=== PATIENT | male | born 1945 ===

== ENCOUNTER 2020-03-07 11:18 | Inpatient (IN) ==
[2020-03-07] MEDS ORDERED: 0.9 % Sodium Chloride 1,000 ML IVC ONE (11:38)
[2020-03-07 11:54] LABS: Basophils % 0.2 %; Hematocrit 37.4 % (37.5-50.1); Hemoglobin 12.1 g/dL (12.9-16.9); Immature Granulocytes % 0.5 % (0-4); Lymphocytes # 0.5 K/mcL (0.6-4.6); Lymphocytes % 12.3 %; Mean Corpuscular HGB Conc 32.4 g/dL (31.6-35.5); Mean Corpuscular Hemoglobin 30.9 pg (28.0-33.3); Mean Corpuscular Volume 95.4 fL (83.0-100.0); Mean Platelet Volume 10.3 fL (9.4-12.4); Monocytes # 0.4 K/mcL (0.0-1.3); Monocytes % 8.4 %; Neutrophils # 3.3 K/mcL (1.6-8.9); Platelet Count 152 K/mcL (140-400); Red Blood Count 3.92 M/mcL (4.19-5.50); Segmented Neutrophils % 78.6 %; White Blood Count 4.2 K/mcL (4.3-11.1)
[2020-03-07 12:05] LABS: INR 1.2; Prothrombin Time 13.8 Seconds (9.4-12.1)
[2020-03-07 12:07] LABS: Activated Partial Thrombo Time 29.4 Seconds (26.0-36.0)
[2020-03-07 12:17] LABS: Alanine Aminotransferase 22 Units/L (7-52); Albumin 4.5 g/dL (3.5-5.7); Albumin/Globulin Ratio 1.5 (1.1-2.2); Alkaline Phosphatase 59 Units/L (34-104); Aspartate Amino Transferase 26 Units/L (13-39); BUN/Creatinine Ratio 17 (6-26); Bilirubin,Direct 0.1 mg/dL (0.0-0.2); Bilirubin,Indirect 0.5 mg/dL (0.0-1.0); Bilirubin,Total 0.6 mg/dL (0.3-1.0); Blood Urea Nitrogen 39 mg/dL (8-23); Calcium 9.1 mg/dL (8.6-10.3); Carbon Dioxide 25 mEq/L (23-29); Chloride 96 mEq/L (98-107); Creatine Kinase 144 Units/L (30-223); Ethanol < 10 mg/dL (Less than 10); Glucose 144 mg/dL (70-105); Osmolality,Calculated 292 (280-300); Potassium 3.3 mEq/L (3.5-5.1); Sodium 135 mEq/L (136-145); Total Protein 7.5 g/dL (6.4-8.9); Troponin I 0.03 ng/mL (< 0.04); eGFR For African Americans 35 (> 60); eGFR For Non-African Americans 29 (> 60)
[2020-03-07 12:30] LABS: Thyroid Stimulating Hormone 2.397 mcIU/mL (0.340-5.600)
[2020-03-07] MEDS ORDERED: Azithromycin 500 MG in 0.9 % Sodium Chloride 250 ML IVPB ONE (12:36)
[2020-03-07] MEDS ORDERED: Potassium Chloride Elixir 20 MEQ/15 ML UDC PO ONE (12:41)
[2020-03-07] MEDS ORDERED: Naloxone 0.4 MG/ML INJ IVP PRN (13:12)
[2020-03-07] MEDS ORDERED: *HR* Dextrose 50 % in Water (Vial) 50 ML VIAL IVP PRN (13:40)
[2020-03-07] MEDS ORDERED: Dextrose Gel 15 GM/37.5 ML TUBE PO PRN ×2 (13:40)
[2020-03-07] MEDS ORDERED: D5% in Water 1,000 ML IVC PRN (13:40)
[2020-03-07 13:45] LABS: ABG Base Excess 2 mEq/L (-2 to 3); ABG HCO3 26 mEq/L (21-27); ABG Oxygen Saturation 94 % (95-98); ABG PCO2 39 mmHg (35-45); ABG PH 7.43 pH Units (7.32-7.45); ABG PO2 69 mmHg (85-104); ABG TCO2 27 mEq/L (20-26)
[2020-03-07 13:55] LABS: Bilirubin,Urine Negative (Negative); Blood,Urine Trace (Negative); Clarity,Urine Clear (Clear); Color,Urine Light-Yellow (Yellow); Glucose,Urine (UA) 70 mg/dL (Normal); Ketones,Urine Negative (Negative); Leukocyte Esterase,Urine Negative (Negative); Mucus,Urine Few per lpf (None-Few); Nitrite,Urine Negative (Negative); PH,Urine 6.5 pH Units (5.0-8.0); Protein,Urine 30 mg/dL (Neg-Trace); RBC,Urine 0-3 per hpf (0-3); Specific Gravity,Urine 1.014 (1.010-1.025); Urobilinogen,Urine Normal (Normal); WBC,Urine 0-3 per hpf (0-3)
[2020-03-07 13:57] LABS: Lactate Dehydrogenase 239 Units/L (140-271)
[2020-03-07 14:01] LABS: Ferritin 57 ng/mL (20-250)
[2020-03-07 14:16] LABS: C-Reactive Protein 67 mg/L (Less than 10)
[2020-03-07 14:31] LABS: Amphetamine Screen,Urine Negative ng/mL (Cutoff=1000); Barbiturate Screen,Urine Negative ng/mL (Cutoff=200); Benzodiazepines Screen,Urine Negative ng/mL (Cutoff=200); Cannabinoid Screen,Urine Negative ng/mL (Cutoff = 50); Cocaine Screen,Urine Negative ng/mL (Cutoff= 300); Opiate Screen,Urine Negative ng/mL (Cutoff=300); Phencyclidine Screen,Urine Negative ng/mL (Cutoff=25)
[2020-03-07] MEDS ORDERED: Benzonatate 100 MG CAPSULE PO PRN (14:35)
[2020-03-07] MEDS ORDERED: Ipratropium 1 PUFF INHALER IH PRN (14:35)
[2020-03-07] MEDS ORDERED: *HR* LORazepam 2 MG/ML VIAL IM PRN (14:37)
[2020-03-07] MEDS ORDERED: Ipratropium 1 PUFF INHALER IH SCH (16:00)
[2020-03-07] MEDS: Insulin LISPRO 300 UNITS/3 ML VIAL SQ SCH (17:56)
[2020-03-07 18:48] LABS: Activated Partial Thrombo Time 28.9 Seconds (26.0-36.0)
[2020-03-07 19:02] LABS: Estimated Average Glucose 134 mg/dl
[2020-03-07] MEDS: *HR* Heparin 5,000 UNIT/ML VIAL SQ SCH (20:21)
[2020-03-07] MEDS: Acetaminophen 325 MG TABLET PO PRN (20:28)
[2020-03-08 02:55] LABS: Eosinophils % 0.4 %; Hematocrit 32.9 % (37.5-50.1); Hemoglobin 10.8 g/dL (12.9-16.9); INR 1.2; Immature Granulocytes % 0.4 % (0-4); Lymphocytes # 0.5 K/mcL (0.6-4.6); Lymphocytes % 16.9 %; Mean Corpuscular HGB Conc 32.8 g/dL (31.6-35.5); Mean Corpuscular Volume 94.5 fL (83.0-100.0); Mean Platelet Volume 10.6 fL (9.4-12.4); Monocytes # 0.2 K/mcL (0.0-1.3); Monocytes % 8.2 %; Platelet Count 137 K/mcL (140-400); Prothrombin Time 14.1 Seconds (9.4-12.1); Red Blood Count 3.48 M/mcL (4.19-5.50); Segmented Neutrophils % 74.1 %; White Blood Count 2.7 K/mcL (4.3-11.1)
[2020-03-08 03:07] LABS: Albumin 3.9 g/dL (3.5-5.7); Albumin/Globulin Ratio 1.5 (1.1-2.2); Bilirubin,Total 0.7 mg/dL (0.3-1.0); Calcium 8.1 mg/dL (8.6-10.3); Chol/HDL Ratio 2.6 (0-4.9); Globulin 2.6 g/dL (2.4-3.5); Magnesium 1.7 mg/dL (1.6-2.6); Phosphorous 2.6 mg/dL (2.7-4.5); Total Protein 6.5 g/dL (6.4-8.9)
[2020-03-08 03:16] LABS: Troponin I 0.04 ng/mL (< 0.04)
[2020-03-08 03:34] LABS: Folate > 22.3 ng/mL (3.0-16.0); Vitamin B12 920 pg/mL (250-1100)
[2020-03-08] MEDS: *HR* Heparin 5,000 UNIT/ML VIAL SQ SCH ×3 (05:02→22:09)
[2020-03-08] MEDS ORDERED: *HR* Enoxaparin 40 MG/0.4 ML SYRINGE SQ SCH (06:00)
[2020-03-08] MEDS: Insulin LISPRO 300 UNITS/3 ML VIAL SQ SCH ×3 (08:03→17:32)
[2020-03-08] MEDS: Aspirin 81 MG TAB.CHEW PO SCH (09:38)
[2020-03-08] MEDS: Acetaminophen 325 MG TABLET PO PRN ×2 (09:38→19:51)
[2020-03-08] MEDS: Finasteride 5 MG TABLET PO SCH (09:38)
[2020-03-08] MEDS: PARoxetine 20 MG TABLET PO SCH (09:38)
[2020-03-09] MEDS: Acetaminophen 325 MG TABLET PO PRN ×2 (05:40→13:49)
[2020-03-09] MEDS: *HR* Heparin 5,000 UNIT/ML VIAL SQ SCH ×3 (05:40→20:14)
[2020-03-09] MEDS: Aspirin 81 MG TAB.CHEW PO SCH (08:13)
[2020-03-09] MEDS: Finasteride 5 MG TABLET PO SCH (08:15)
[2020-03-09] MEDS: PARoxetine 20 MG TABLET PO SCH (08:15)
[2020-03-09] MEDS: Insulin LISPRO 300 UNITS/3 ML VIAL SQ SCH ×3 (08:19→16:44)
[2020-03-09 11:37] LABS: Calcium 8.6 mg/dL (8.6-10.3); Phosphorous 2.6 mg/dL (2.7-4.5); Potassium 3.5 mEq/L (3.5-5.1)
[2020-03-09] MEDS ORDERED: Potassium Phosphate 44 MEQ in 0.9 % Sodium Chloride 250 ML IVPB ONE (14:27)
[2020-03-09] MEDS ORDERED: Ibuprofen 400 MG TABLET PO ONE (17:14)
[2020-03-10] MEDS: Acetaminophen 325 MG TABLET PO PRN ×2 (00:25→08:01)
[2020-03-10 01:10] LABS: Hematocrit 33.2 % (37.5-50.1); Hemoglobin 10.8 g/dL (12.9-16.9); Immature Platelets 3.5 % (1.1-6.1); Mean Corpuscular HGB Conc 32.5 g/dL (31.6-35.5); Mean Corpuscular Hemoglobin 30.9 pg (28.0-33.3); Mean Corpuscular Volume 94.9 fL (83.0-100.0); Mean Platelet Volume 10.1 fL (9.4-12.4); Red Blood Count 3.5 M/mcL (4.19-5.50); White Blood Count 2.4 K/mcL (4.3-11.1)
[2020-03-10 01:31] LABS: Calcium 8.7 mg/dL (8.6-10.3); Magnesium 1.7 mg/dL (1.6-2.6); Potassium 3.6 mEq/L (3.5-5.1)
[2020-03-10] MEDS: *HR* Heparin 5,000 UNIT/ML VIAL SQ SCH ×3 (05:05→19:44)
[2020-03-10] MEDS: PARoxetine 20 MG TABLET PO SCH (08:01)
[2020-03-10] MEDS: Insulin LISPRO 300 UNITS/3 ML VIAL SQ SCH ×3 (08:01→16:48)
[2020-03-10] MEDS: Finasteride 5 MG TABLET PO SCH (08:01)
[2020-03-10] MEDS: Aspirin 81 MG TAB.CHEW PO SCH (08:01)
[2020-03-10] MEDS ORDERED: Ringers Solution, Lactated 1,000 ML IVC ONE (10:06)
[2020-03-10] MEDS ORDERED: Ibuprofen 400 MG TABLET PO ONE (16:31)
[2020-03-11] MEDS: *HR* Heparin 5,000 UNIT/ML VIAL SQ SCH ×3 (05:02→20:00)
[2020-03-11] MEDS: Insulin LISPRO 300 UNITS/3 ML VIAL SQ SCH ×3 (08:03→16:13)
[2020-03-11] MEDS: Finasteride 5 MG TABLET PO SCH (08:04)
[2020-03-11] MEDS: PARoxetine 20 MG TABLET PO SCH (08:04)
[2020-03-11] MEDS: Aspirin 81 MG TAB.CHEW PO SCH (08:04)
[2020-03-11] MEDS ORDERED: QUEtiapine Fumarate 25 MG TABLET PO ONE (14:10)
[2020-03-11] MEDS ORDERED: Haloperidol Lactate 5 MG/ML VIAL IVP ONE (15:16)
[2020-03-11] MEDS ORDERED: *HR* Labetalol 20 MG/4 ML SYRINGE IVP ONE (19:13)
[2020-03-11] MEDS: Dexmedetomidine HCl 400 MCG/100 ML MLS IVC SCH (19:43)
[2020-03-11] MEDS: QUEtiapine Fumarate 25 MG TABLET PO SCH (20:01)
[2020-03-11] MEDS ORDERED: 0.9 % Sodium Chloride 500 ML ONE (22:40)
[2020-03-12 03:11] LABS: Hematocrit 34.6 % (37.5-50.1); Hemoglobin 11.2 g/dL (12.9-16.9); Mean Corpuscular HGB Conc 32.4 g/dL (31.6-35.5); Mean Corpuscular Hemoglobin 30.3 pg (28.0-33.3); Mean Corpuscular Volume 93.5 fL (83.0-100.0); Mean Platelet Volume 9.8 fL (9.4-12.4); Platelet Count 103 K/mcL (140-400)
[2020-03-12 03:22] LABS: White Blood Count 4.2 K/mcL (4.3-11.1)
[2020-03-12 03:30] LABS: Calcium 8.9 mg/dL (8.6-10.3); Magnesium 1.6 mg/dL (1.6-2.6); Potassium 3.8 mEq/L (3.5-5.1)
[2020-03-12] MEDS: *HR* Heparin 5,000 UNIT/ML VIAL SQ SCH ×3 (04:09→19:59)
[2020-03-12] MEDS: Dexmedetomidine HCl 400 MCG/100 ML MLS IVC SCH (08:17)
[2020-03-12] MEDS: Finasteride 5 MG TABLET PO SCH (08:18)
[2020-03-12] MEDS: Aspirin 81 MG TAB.CHEW PO SCH (08:18)
[2020-03-12] MEDS: PARoxetine 20 MG TABLET PO SCH (08:18)
[2020-03-12] MEDS: Insulin LISPRO 300 UNITS/3 ML VIAL SQ SCH ×3 (08:41→18:00)
[2020-03-12] MEDS: Acetaminophen 325 MG TABLET PO PRN ×2 (11:59→18:00)
[2020-03-12] MEDS: QUEtiapine Fumarate 25 MG TABLET PO SCH (19:59)
[2020-03-13] MEDS: Acetaminophen 325 MG TABLET PO PRN ×2 (00:25→16:36)
[2020-03-13] MEDS: *HR* Heparin 5,000 UNIT/ML VIAL SQ SCH ×3 (05:13→21:32)
[2020-03-13] MEDS: Finasteride 5 MG TABLET PO SCH (08:29)
[2020-03-13] MEDS: Aspirin 81 MG TAB.CHEW PO SCH (08:29)
[2020-03-13] MEDS: PARoxetine 20 MG TABLET PO SCH (08:29)
[2020-03-13] MEDS: Insulin LISPRO 300 UNITS/3 ML VIAL SQ SCH ×3 (09:46→16:51)
[2020-03-13] MEDS: Dexmedetomidine HCl 400 MCG/100 ML MLS IVC SCH (13:09)
[2020-03-13] MEDS ORDERED: Ringers Solution, Lactated 1,000 ML IVC SCH (14:30)
[2020-03-13] MEDS: QUEtiapine Fumarate 25 MG TABLET PO SCH (20:44)
[2020-03-14] MEDS: *HR* Heparin 5,000 UNIT/ML VIAL SQ SCH ×3 (05:10→20:47)
[2020-03-14] MEDS: Acetaminophen 325 MG TABLET PO PRN ×3 (05:25→22:07)
[2020-03-14 05:28] LABS: Hematocrit 30.8 % (37.5-50.1); Hemoglobin 9.8 g/dL (12.9-16.9); Mean Corpuscular HGB Conc 31.8 g/dL (31.6-35.5); Mean Corpuscular Hemoglobin 30.6 pg (28.0-33.3); Mean Corpuscular Volume 96.3 fL (83.0-100.0); Mean Platelet Volume 10.2 fL (9.4-12.4); Platelet Count 106 K/mcL (140-400); White Blood Count 3.5 K/mcL (4.3-11.1)
[2020-03-14 05:46] LABS: Calcium 8.8 mg/dL (8.6-10.3); Magnesium 1.8 mg/dL (1.6-2.6); Potassium 3.6 mEq/L (3.5-5.1)
[2020-03-14] MEDS: Insulin LISPRO 300 UNITS/3 ML VIAL SQ SCH ×3 (07:43→17:33)
[2020-03-14] MEDS: PARoxetine 20 MG TABLET PO SCH (07:47)
[2020-03-14] MEDS: Finasteride 5 MG TABLET PO SCH (07:47)
[2020-03-14] MEDS: Aspirin 81 MG TAB.CHEW PO SCH (07:47)
[2020-03-14] MEDS ORDERED: NON-FORMULARY MEDICATION 1 EACH EACH (Amlodipine Besylate 10 MG) PO SCH (16:45)
[2020-03-14] MEDS: QUEtiapine Fumarate 25 MG TABLET PO SCH (20:47)
[2020-03-15 02:45] LABS: Basophils % 0.2 %; Eosinophils % 0.5 %; Hematocrit 31.3 % (37.5-50.1); Immature Granulocytes % 0.2 % (0-4); Lymphocytes # 0.3 K/mcL (0.6-4.6); Lymphocytes % 7.5 %; Mean Corpuscular HGB Conc 31.9 g/dL (31.6-35.5); Mean Corpuscular Hemoglobin 30.6 pg (28.0-33.3); Mean Corpuscular Volume 95.7 fL (83.0-100.0); Mean Platelet Volume 10.8 fL (9.4-12.4); Monocytes # 0.2 K/mcL (0.0-1.3); Monocytes % 3.7 %; Neutrophils # 3.5 K/mcL (1.6-8.9); Platelet Count 136 K/mcL (140-400); Red Blood Count 3.27 M/mcL (4.19-5.50); Red Cell Distribution Width 11.9 % (11.5-14.5); Segmented Neutrophils % 87.9 %
[2020-03-15 02:56] LABS: Alanine Aminotransferase 29 Units/L (7-52); Albumin 3.5 g/dL (3.5-5.7); Albumin/Globulin Ratio 1.1 (1.1-2.2); Alkaline Phosphatase 64 Units/L (34-104); Aspartate Amino Transferase 45 Units/L (13-39); BUN/Creatinine Ratio 26 (6-26); Bilirubin,Total 0.8 mg/dL (0.3-1.0); Blood Urea Nitrogen 36 mg/dL (8-23); C-Reactive Protein 209 mg/L (Less than 10); Calcium 9.1 mg/dL (8.6-10.3); Carbon Dioxide 26 mEq/L (23-29); Chloride 100 mEq/L (98-107); Globulin 3.3 g/dL (2.4-3.5); Glucose 134 mg/dL (70-105); Lactate Dehydrogenase 495 Units/L (140-271); Osmolality,Calculated 294 (280-300); Potassium 3.8 mEq/L (3.5-5.1); Sodium 137 mEq/L (136-145); Total Protein 6.8 g/dL (6.4-8.9); eGFR For African Americans > 60 (> 60); eGFR For Non-African Americans 51 (> 60)
[2020-03-15 03:13] LABS: Ferritin 476 ng/mL (20-250)
[2020-03-15] MEDS: *HR* Heparin 5,000 UNIT/ML VIAL SQ SCH ×3 (05:04→20:53)
[2020-03-15] MEDS: Insulin LISPRO 300 UNITS/3 ML VIAL SQ SCH ×3 (07:30→17:01)
[2020-03-15] MEDS: PARoxetine 20 MG TABLET PO SCH (07:32)
[2020-03-15] MEDS: Finasteride 5 MG TABLET PO SCH (07:32)
[2020-03-15] MEDS: Aspirin 81 MG TAB.CHEW PO SCH (07:32)
[2020-03-15] MEDS: Acetaminophen 325 MG TABLET PO PRN ×2 (07:44→14:03)
[2020-03-15] MEDS ORDERED: Perflutren Lipid Microsphere 1.3 ML in 0.9 % Sodium Chloride 8.7 ML IVP PRN (12:18)
[2020-03-15] MEDS: Azithromycin 500 MG in 0.9 % Sodium Chloride 250 ML IVPB SCH (12:44)
[2020-03-15] MEDS: lisinopriL 20 MG TABLET PO SCH (12:44)
[2020-03-15] MEDS: Dexamethasone 4 MG/ML VIAL IVP SCH (12:44)
[2020-03-15 13:55] LABS: Troponin I < 0.03 ng/mL (< 0.04)
[2020-03-15 13:58] LABS: Thyroid Stimulating Hormone 2.055 mcIU/mL (0.340-5.600)
[2020-03-15] MEDS: Fluticasone Propionate Nasal 50 MCG/SPRAY BOTTLE NS SCH (14:04)
[2020-03-15] MEDS: *HR* OxyCODONE Immed Rel 5 MG TABLET PO PRN (20:53)
[2020-03-15] MEDS: QUEtiapine Fumarate 25 MG TABLET PO SCH (20:53)
[2020-03-16 05:11] LABS: Hematocrit 27.6 % (37.5-50.1); Hemoglobin 9.1 g/dL (12.9-16.9); Immature Granulocytes % 0.8 % (0-4); Lymphocytes # 0.2 K/mcL (0.6-4.6); Lymphocytes % 5.5 %; Mean Corpuscular Volume 93.9 fL (83.0-100.0); Mean Platelet Volume 10.8 fL (9.4-12.4); Monocytes # 0.2 K/mcL (0.0-1.3); Monocytes % 4.4 %; Neutrophils # 3.4 K/mcL (1.6-8.9); Platelet Count 140 K/mcL (140-400); Red Blood Count 2.94 M/mcL (4.19-5.50); Red Cell Distribution Width 11.8 % (11.5-14.5); Segmented Neutrophils % 89.3 %; White Blood Count 3.8 K/mcL (4.3-11.1)
[2020-03-16 05:47] LABS: Alanine Aminotransferase 22 Units/L (7-52); Albumin 3.2 g/dL (3.5-5.7); Alkaline Phosphatase 67 Units/L (34-104); Aspartate Amino Transferase 32 Units/L (13-39); BUN/Creatinine Ratio 28 (6-26); Bilirubin,Total 0.7 mg/dL (0.3-1.0); Blood Urea Nitrogen 35 mg/dL (8-23); Calcium 8.9 mg/dL (8.6-10.3); Carbon Dioxide 26 mEq/L (23-29); Chloride 101 mEq/L (98-107); Ferritin 376 ng/mL (20-250); Globulin 3.1 g/dL (2.4-3.5); Glucose 159 mg/dL (70-105); Lactate Dehydrogenase 418 Units/L (140-271); Osmolality,Calculated 295 (280-300); Potassium 3.5 mEq/L (3.5-5.1); Sodium 137 mEq/L (136-145); Total Protein 6.3 g/dL (6.4-8.9); eGFR For African Americans > 60 (> 60); eGFR For Non-African Americans 56 (> 60)
[2020-03-16] MEDS: *HR* Heparin 5,000 UNIT/ML VIAL SQ SCH ×3 (06:10→20:43)
[2020-03-16] MEDS: PARoxetine 20 MG TABLET PO SCH (07:54)
[2020-03-16] MEDS: Finasteride 5 MG TABLET PO SCH (07:55)
[2020-03-16] MEDS: Aspirin 81 MG TAB.CHEW PO SCH (07:55)
[2020-03-16] MEDS: Dexamethasone 4 MG/ML VIAL IVP SCH (07:55)
[2020-03-16] MEDS: lisinopriL 20 MG TABLET PO SCH (07:55)
[2020-03-16] MEDS: Insulin LISPRO 300 UNITS/3 ML VIAL SQ SCH ×3 (07:55→17:03)
[2020-03-16] MEDS: Fluticasone Propionate Nasal 50 MCG/SPRAY BOTTLE NS SCH (08:23)
[2020-03-16 11:42] LABS: C-Reactive Protein 205 mg/L (Less than 10)
[2020-03-16] MEDS ORDERED: polyethylene glycoL 3350 17 GM POWD.PACK PO PRN (13:02)
[2020-03-16] MEDS: Acetaminophen 325 MG TABLET PO PRN (14:15)
[2020-03-16] MEDS: Azithromycin 500 MG in 0.9 % Sodium Chloride 250 ML IVPB SCH (14:15)
[2020-03-16] MEDS ORDERED: lisinopriL 20 MG TABLET PO ONE (16:27)
[2020-03-16] MEDS: QUEtiapine Fumarate 25 MG TABLET PO SCH (20:42)
[2020-03-16] MEDS: *HR* OxyCODONE Immed Rel 5 MG TABLET PO PRN (20:42)
[2020-03-17] MEDS: *HR* Enoxaparin 40 MG/0.4 ML SYRINGE SQ SCH (03:57)
[2020-03-17 05:58] LABS: Basophils % 0.1 %; Hematocrit 29.6 % (37.5-50.1); Hemoglobin 9.4 g/dL (12.9-16.9); Immature Granulocytes % 1.5 % (0-4); Lymphocytes # 0.3 K/mcL (0.6-4.6); Lymphocytes % 4.2 %; Mean Corpuscular HGB Conc 31.8 g/dL (31.6-35.5); Mean Corpuscular Hemoglobin 29.7 pg (28.0-33.3); Mean Corpuscular Volume 93.7 fL (83.0-100.0); Mean Platelet Volume 10.4 fL (9.4-12.4); Monocytes # 0.2 K/mcL (0.0-1.3); Monocytes % 3.1 %; Nucleated Red Blood Cells 0.4 /100 WBC (0); Platelet Count 180 K/mcL (140-400); Red Blood Count 3.16 M/mcL (4.19-5.50); Red Cell Distribution Width 11.9 % (11.5-14.5); Segmented Neutrophils % 91.1 %
[2020-03-17 05:59] LABS: Neutrophils # 6.7 K/mcL (1.6-8.9); White Blood Count 7.4 K/mcL (4.3-11.1)
[2020-03-17 06:22] LABS: Albumin 3.1 g/dL (3.5-5.7); Bilirubin,Total 0.6 mg/dL (0.3-1.0); Globulin 3.2 g/dL (2.4-3.5); Potassium 3.4 mEq/L (3.5-5.1); Total Protein 6.3 g/dL (6.4-8.9)
[2020-03-17] MEDS: Dexamethasone 4 MG/ML VIAL IVP SCH (09:21)
[2020-03-17] MEDS: lisinopriL 20 MG TABLET PO SCH (09:22)
[2020-03-17] MEDS: Acetaminophen 325 MG TABLET PO PRN ×2 (09:22→20:15)
[2020-03-17] MEDS: Finasteride 5 MG TABLET PO SCH (09:22)
[2020-03-17] MEDS: PARoxetine 20 MG TABLET PO SCH (09:23)
[2020-03-17] MEDS: Insulin LISPRO 300 UNITS/3 ML VIAL SQ SCH ×4 (09:23→20:10)
[2020-03-17] MEDS: Fluticasone Propionate Nasal 50 MCG/SPRAY BOTTLE NS SCH (09:23)
[2020-03-17] MEDS: Aspirin 81 MG TAB.CHEW PO SCH (09:27)
[2020-03-17] MEDS ORDERED: 0.9 % Sodium Chloride 1,000 ML IVC SCH (12:45)
[2020-03-17] MEDS: Azithromycin 250 MG TABLET PO SCH (15:08)
[2020-03-17] MEDS: *HR* OxyCODONE Immed Rel 5 MG TABLET PO PRN ×2 (17:09→23:23)
[2020-03-17] MEDS: QUEtiapine Fumarate 25 MG TABLET PO SCH (19:52)
[2020-03-18] MEDS: Acetaminophen 325 MG TABLET PO PRN ×2 (03:17→08:24)
[2020-03-18] MEDS ORDERED: *HR* OxyCODONE Immed Rel 5 MG TABLET PO ONE (03:22)
[2020-03-18] MEDS: *HR* Enoxaparin 40 MG/0.4 ML SYRINGE SQ SCH ×2 (03:27→20:31)
[2020-03-18 06:53] LABS: Basophils % 0.2 %; Eosinophils % 0.2 %; Hematocrit 29.6 % (37.5-50.1); Hemoglobin 9.4 g/dL (12.9-16.9); Immature Granulocytes % 1.3 % (0-4); Lymphocytes # 0.3 K/mcL (0.6-4.6); Lymphocytes % 5.2 %; Mean Corpuscular HGB Conc 31.8 g/dL (31.6-35.5); Mean Corpuscular Hemoglobin 30.5 pg (28.0-33.3); Mean Corpuscular Volume 96.1 fL (83.0-100.0); Mean Platelet Volume 10.1 fL (9.4-12.4); Monocytes # 0.2 K/mcL (0.0-1.3); Monocytes % 3.5 %; Neutrophils # 5.4 K/mcL (1.6-8.9); Nucleated Red Blood Cells 0.5 /100 WBC (0); Platelet Count 162 K/mcL (140-400); Red Blood Count 3.08 M/mcL (4.19-5.50); Red Cell Distribution Width 12.1 % (11.5-14.5); Segmented Neutrophils % 89.6 %
[2020-03-18 07:09] LABS: Alanine Aminotransferase 26 Units/L (7-52); Albumin 3.1 g/dL (3.5-5.7); Alkaline Phosphatase 70 Units/L (34-104); Aspartate Amino Transferase 30 Units/L (13-39); BUN/Creatinine Ratio 29 (6-26); Bilirubin,Total 0.7 mg/dL (0.3-1.0); Blood Urea Nitrogen 41 mg/dL (8-23); Calcium 8.9 mg/dL (8.6-10.3); Carbon Dioxide 29 mEq/L (23-29); Chloride 105 mEq/L (98-107); Glucose 100 mg/dL (70-105); Lactate Dehydrogenase 411 Units/L (140-271); Osmolality,Calculated 302 (280-300); Potassium 3.8 mEq/L (3.5-5.1); Sodium 141 mEq/L (136-145); Total Protein 6.1 g/dL (6.4-8.9); eGFR For African Americans > 60 (> 60); eGFR For Non-African Americans 50 (> 60)
[2020-03-18 07:26] LABS: Ferritin 280 ng/mL (20-250)
[2020-03-18] MEDS: Dexamethasone 4 MG/ML VIAL IVP SCH (08:23)
[2020-03-18] MEDS: PARoxetine 20 MG TABLET PO SCH (08:24)
[2020-03-18] MEDS: Aspirin 81 MG TAB.CHEW PO SCH (08:24)
[2020-03-18] MEDS: lisinopriL 20 MG TABLET PO SCH (08:24)
[2020-03-18] MEDS: Insulin LISPRO 300 UNITS/3 ML VIAL SQ SCH ×4 (08:25→20:37)
[2020-03-18] MEDS: Fluticasone Propionate Nasal 50 MCG/SPRAY BOTTLE NS SCH (08:25)
[2020-03-18] MEDS: Finasteride 5 MG TABLET PO SCH (08:28)
[2020-03-18] MEDS: *HR* OxyCODONE Immed Rel 5 MG TABLET PO PRN ×2 (10:17→20:42)
[2020-03-18] MEDS ORDERED: *HR* Labetalol 20 MG/4 ML SYRINGE IVP ONE (10:28)
[2020-03-18] MEDS ORDERED: Furosemide 20 MG/2 ML VIAL IVP ONE (10:31)
[2020-03-18 13:33] LABS: C-Reactive Protein 64 mg/L (Less than 10)
[2020-03-18] MEDS: Azithromycin 250 MG TABLET PO SCH (17:54)
[2020-03-18] MEDS: *HR* Labetalol 20 MG/4 ML SYRINGE IVP PRN (17:54)
[2020-03-18] MEDS: QUEtiapine Fumarate 25 MG TABLET PO SCH (20:30)
[2020-03-19] MEDS: *HR* Labetalol 20 MG/4 ML SYRINGE IVP PRN ×2 (00:03→12:51)
[2020-03-19] MEDS: Acetaminophen 325 MG TABLET PO PRN ×2 (00:04→22:04)
[2020-03-19] MEDS: *HR* OxyCODONE Immed Rel 5 MG TABLET PO PRN ×3 (02:24→17:53)
[2020-03-19 07:02] LABS: Basophils % 0.2 %; Eosinophils % 0.3 %; Hematocrit 30.5 % (37.5-50.1); Hemoglobin 9.8 g/dL (12.9-16.9); Immature Granulocytes % 1.3 % (0-4); Lymphocytes # 0.5 K/mcL (0.6-4.6); Lymphocytes % 7.5 %; Mean Corpuscular HGB Conc 32.1 g/dL (31.6-35.5); Mean Corpuscular Hemoglobin 30.9 pg (28.0-33.3); Mean Corpuscular Volume 96.2 fL (83.0-100.0); Mean Platelet Volume 10.6 fL (9.4-12.4); Monocytes # 0.3 K/mcL (0.0-1.3); Monocytes % 4.2 %; Neutrophils # 5.4 K/mcL (1.6-8.9); Nucleated Red Blood Cells 0.6 /100 WBC (0); Platelet Count 193 K/mcL (140-400); Red Blood Count 3.17 M/mcL (4.19-5.50); Segmented Neutrophils % 86.5 %; White Blood Count 6.2 K/mcL (4.3-11.1)
[2020-03-19 07:17] LABS: Alanine Aminotransferase 31 Units/L (7-52); Albumin 3.2 g/dL (3.5-5.7); Alkaline Phosphatase 72 Units/L (34-104); Aspartate Amino Transferase 33 Units/L (13-39); BUN/Creatinine Ratio 26 (6-26); Bilirubin,Total 0.8 mg/dL (0.3-1.0); Blood Urea Nitrogen 36 mg/dL (8-23); Carbon Dioxide 29 mEq/L (23-29); Chloride 101 mEq/L (98-107); Globulin 3.1 g/dL (2.4-3.5); Glucose 126 mg/dL (70-105); Osmolality,Calculated 298 (280-300); Potassium 3.9 mEq/L (3.5-5.1); Sodium 139 mEq/L (136-145); Total Protein 6.3 g/dL (6.4-8.9); eGFR For African Americans > 60 (> 60); eGFR For Non-African Americans 51 (> 60)
[2020-03-19] MEDS: Insulin LISPRO 300 UNITS/3 ML VIAL SQ SCH ×4 (08:10→20:30)
[2020-03-19] MEDS: Dexamethasone 4 MG/ML VIAL IVP SCH (08:19)
[2020-03-19] MEDS: PARoxetine 20 MG TABLET PO SCH (08:19)
[2020-03-19] MEDS: Finasteride 5 MG TABLET PO SCH (08:20)
[2020-03-19] MEDS: lisinopriL 20 MG TABLET PO SCH (08:20)
[2020-03-19] MEDS: Aspirin 81 MG TAB.CHEW PO SCH (08:20)
[2020-03-19] MEDS: *HR* Enoxaparin 40 MG/0.4 ML SYRINGE SQ SCH ×2 (08:21→20:36)
[2020-03-19] MEDS: Furosemide 20 MG/2 ML VIAL IVP SCH (10:28)
[2020-03-19] MEDS ORDERED: Ketorolac 15 MG/ML VIAL IVP ONE (14:40)
[2020-03-19] MEDS: Azithromycin 250 MG TABLET PO SCH (16:24)
[2020-03-19] MEDS: QUEtiapine Fumarate 25 MG TABLET PO SCH (20:36)
[2020-03-20 03:40] LABS: Basophils % 0.2 %; Eosinophils % 0.7 %; Hematocrit 30.1 % (37.5-50.1); Hemoglobin 9.5 g/dL (12.9-16.9); Immature Granulocytes % 1.4 % (0-4); Lymphocytes # 0.3 K/mcL (0.6-4.6); Lymphocytes % 6.1 %; Mean Corpuscular HGB Conc 31.6 g/dL (31.6-35.5); Mean Corpuscular Hemoglobin 30.1 pg (28.0-33.3); Mean Corpuscular Volume 95.3 fL (83.0-100.0); Mean Platelet Volume 10.2 fL (9.4-12.4); Monocytes # 0.3 K/mcL (0.0-1.3); Neutrophils # 4.8 K/mcL (1.6-8.9); Nucleated Red Blood Cells 0.4 /100 WBC (0); Platelet Count 173 K/mcL (140-400); Red Blood Count 3.16 M/mcL (4.19-5.50); Red Cell Distribution Width 12.3 % (11.5-14.5); Segmented Neutrophils % 86.6 %; White Blood Count 5.6 K/mcL (4.3-11.1)
[2020-03-20 03:57] LABS: Alanine Aminotransferase 28 Units/L (7-52); Albumin 3.1 g/dL (3.5-5.7); Alkaline Phosphatase 67 Units/L (34-104); Aspartate Amino Transferase 26 Units/L (13-39); BUN/Creatinine Ratio 27 (6-26); Bilirubin,Total 0.9 mg/dL (0.3-1.0); Blood Urea Nitrogen 37 mg/dL (8-23); C-Reactive Protein 81 mg/L (Less than 10); Calcium 8.7 mg/dL (8.6-10.3); Carbon Dioxide 27 mEq/L (23-29); Chloride 99 mEq/L (98-107); Glucose 119 mg/dL (70-105); Lactate Dehydrogenase 360 Units/L (140-271); Osmolality,Calculated 294 (280-300); Potassium 3.4 mEq/L (3.5-5.1); Sodium 137 mEq/L (136-145); Total Protein 6.1 g/dL (6.4-8.9); eGFR For African Americans > 60 (> 60); eGFR For Non-African Americans 50 (> 60)
[2020-03-20 04:15] LABS: Ferritin 231 ng/mL (20-250)
[2020-03-20] MEDS: *HR* OxyCODONE Immed Rel 5 MG TABLET PO PRN ×2 (05:30→18:52)
[2020-03-20] MEDS: Insulin LISPRO 300 UNITS/3 ML VIAL SQ SCH ×4 (09:04→20:44)
[2020-03-20] MEDS: *HR* Enoxaparin 40 MG/0.4 ML SYRINGE SQ SCH (09:49)
[2020-03-20] MEDS: Furosemide 20 MG/2 ML VIAL IVP SCH (09:50)
[2020-03-20] MEDS: Dexamethasone 4 MG/ML VIAL IVP SCH (09:50)
[2020-03-20] MEDS: PARoxetine 20 MG TABLET PO SCH (09:51)
[2020-03-20] MEDS: Aspirin 81 MG TAB.CHEW PO SCH (09:51)
[2020-03-20] MEDS: lisinopriL 20 MG TABLET PO SCH (09:51)
[2020-03-20] MEDS: Finasteride 5 MG TABLET PO SCH (09:52)
[2020-03-20] MEDS: Acetaminophen 325 MG TABLET PO PRN ×2 (10:01→20:53)
[2020-03-20] MEDS: QUEtiapine Fumarate 25 MG TABLET PO SCH (20:43)
[2020-03-21] MEDS: *HR* Labetalol 20 MG/4 ML SYRINGE IVP PRN (00:01)
[2020-03-21] MEDS: *HR* OxyCODONE Immed Rel 5 MG TABLET PO PRN (05:13)
[2020-03-21] MEDS ORDERED: *HR* Enoxaparin 40 MG/0.4 ML SYRINGE SQ SCH (06:00)
[2020-03-21 07:19] LABS: Basophils % 0.2 %; Eosinophils % 0.7 %; Hematocrit 29.1 % (37.5-50.1); Hemoglobin 9.2 g/dL (12.9-16.9); Immature Granulocytes % 1.1 % (0-4); Lymphocytes # 0.4 K/mcL (0.6-4.6); Lymphocytes % 7.1 %; Mean Corpuscular HGB Conc 31.6 g/dL (31.6-35.5); Mean Corpuscular Hemoglobin 30.5 pg (28.0-33.3); Mean Corpuscular Volume 96.4 fL (83.0-100.0); Monocytes # 0.3 K/mcL (0.0-1.3); Monocytes % 5.1 %; Neutrophils # 4.6 K/mcL (1.6-8.9); Nucleated Red Blood Cells 0.4 /100 WBC (0); Platelet Count 181 K/mcL (140-400); Red Blood Count 3.02 M/mcL (4.19-5.50); Red Cell Distribution Width 12.8 % (11.5-14.5); Segmented Neutrophils % 85.8 %; White Blood Count 5.3 K/mcL (4.3-11.1)
[2020-03-21 07:37] LABS: Albumin 3.1 g/dL (3.5-5.7); Bilirubin,Total 0.7 mg/dL (0.3-1.0); Potassium 3.7 mEq/L (3.5-5.1); Total Protein 6.1 g/dL (6.4-8.9)
[2020-03-21] MEDS: Insulin LISPRO 300 UNITS/3 ML VIAL SQ SCH ×3 (09:32→16:29)
[2020-03-21] MEDS: Aspirin 81 MG TAB.CHEW PO SCH (09:33)
[2020-03-21] MEDS: Dexamethasone 4 MG/ML VIAL IVP SCH (09:34)
[2020-03-21] MEDS: PARoxetine 20 MG TABLET PO SCH (09:35)
[2020-03-21] MEDS: Finasteride 5 MG TABLET PO SCH (09:36)
[2020-03-21] MEDS ORDERED: Ketorolac 15 MG/ML VIAL IVP ONE (10:16)
[2020-03-21] MEDS: Furosemide 20 MG/2 ML VIAL IVP SCH (10:19)
[2020-03-21] MEDS: lisinopriL 20 MG TABLET PO SCH (10:19)
[2020-03-21 17:54] VITALS: BP 110/46
== END 2020-03-21 18:39 | disposition short-term general hospital (02) | DRG 177 ==
LOC: SUATTDRO → EMEROOARM 11:18 → 2NENU 11:18 → SUATTDRO 16:10 → 2NENU 16:56 → SUATTDRO 03-09 13:08 → 3BNU 03-16 20:18 → 2NENU 03-18 19:31
PROVIDERS: ADMIT Internal Medicine; ATTEND Internal Medicine

== ENCOUNTER 2021-01-18 13:05 | Observation (INO) ==
[2021-01-18] MEDS ORDERED: 0.9 % Sodium Chloride 1,000 ML IVC ONE ×2 (13:25→15:02)
[2021-01-18] MEDS ORDERED: Isovue-370 500 ML BOTTLE IVP ONE (13:35)
[2021-01-18 14:06] LABS: Hemoglobin 6.4 g/dL (12.9-16.9); Mean Platelet Volume 10.6 fL (9.4-12.4)
[2021-01-18 14:07] LABS: Basophils % 0.7 %; Eosinophils # 0.1 K/mcL (0.0-0.6); Eosinophils % 1.5 %; Hematocrit 22.5 % (37.5-50.1); Immature Granulocytes % 0.2 % (0-4); Lymphocytes # 0.5 K/mcL (0.6-4.6); Lymphocytes % 10.3 %; Mean Corpuscular HGB Conc 28.4 g/dL (31.6-35.5); Mean Corpuscular Volume 87.9 fL (83.0-100.0); Monocytes # 0.5 K/mcL (0.0-1.3); Monocytes % 9.9 %; Platelet Count 207 K/mcL (140-400); Red Blood Count 2.56 M/mcL (4.19-5.50); Red Cell Distribution Width 14.5 % (11.5-14.5); Segmented Neutrophils % 77.4 %; White Blood Count 4.6 K/mcL (4.3-11.1)
[2021-01-18 14:13] LABS: Neutrophils # 3.6 K/mcL (1.6-8.9)
[2021-01-18 14:19] LABS: INR 1.3; Prothrombin Time 14.4 Seconds (9.4-12.1)
[2021-01-18 14:21] LABS: Activated Partial Thrombo Time 36.7 Seconds (26.0-36.0)
[2021-01-18] MEDS ORDERED: 0.9 % Sodium Chloride 250 ML ONE (14:49)
[2021-01-18 14:56] LABS: Alanine Aminotransferase 8 Units/L (7-52); Albumin 4.2 g/dL (3.5-5.7); Albumin/Globulin Ratio 1.9 (1.1-2.2); Alkaline Phosphatase 43 Units/L (34-104); Aspartate Amino Transferase 17 Units/L (13-39); BUN/Creatinine Ratio 17 (6-26); Bilirubin,Total 0.6 mg/dL (0.3-1.0); Blood Urea Nitrogen 34 mg/dL (8-23); Calcium 9.6 mg/dL (8.6-10.3); Carbon Dioxide 23 mEq/L (23-29); Chloride 105 mEq/L (98-107); Globulin 2.2 g/dL (2.4-3.5); Glucose 136 mg/dL (70-105); Magnesium 1.7 mg/dL (1.6-2.6); Osmolality,Calculated 302 (280-300); Potassium 4.1 mEq/L (3.5-5.1); Sodium 141 mEq/L (136-145); Total Protein 6.4 g/dL (6.4-8.9); Troponin I < 0.03 ng/mL (< 0.04); eGFR For African Americans 40 (> 60); eGFR For Non-African Americans 33 (> 60)
[2021-01-18 15:11] LABS: Platelet Estimate Normal (Normal)
[2021-01-18 15:12] LABS: Anisocytosis 1+ (Not Present); Hypochromasia Present (Not Present)
[2021-01-18] MEDS ORDERED: Ondansetron 4 MG/2 ML VIAL IVP PRN (16:56)
[2021-01-18] MEDS ORDERED: *HR* Labetalol 20 MG/4 ML SYRINGE IVP PRN (17:02)
[2021-01-18] MEDS ORDERED: D5% in Water 1,000 ML IVC PRN (17:03)
[2021-01-18] MEDS ORDERED: Dextrose Gel 15 GM/37.5 ML TUBE PO PRN ×2 (17:03)
[2021-01-18] MEDS ORDERED: *HR* Dextrose 50 % in Water (Syg) 50 ML SYRINGE IVP PRN (17:03)
[2021-01-18] MEDS ORDERED: 0.9 % Sodium Chloride 250 ML IVC SCH (17:45)
[2021-01-18] MEDS ORDERED: Pantoprazole 40 MG VIAL IVP ONE (17:49)
[2021-01-18] MEDS: Insulin LISPRO 300 UNITS/3 ML VIAL SUBQ SCH (18:52)
[2021-01-18 18:55] LABS: Ferritin 20 ng/mL (20-250); Iron 36 mcg/dL (65-175)
[2021-01-18] MEDS: hydrALAZINE 25 MG TABLET PO SCH (19:46)
[2021-01-18 20:30] LABS: Hematocrit 25.6 % (37.5-50.1); Hemoglobin 7.5 g/dL (12.9-16.9)
[2021-01-18] MEDS ORDERED: Insulin LISPRO 300 UNITS/3 ML VIAL SUBQ SCH (21:00)
[2021-01-19] MEDS: Acetaminophen 325 MG TABLET PO PRN ×2 (00:22→14:44)
[2021-01-19] MEDS: hydrALAZINE 25 MG TABLET PO SCH ×3 (00:23→18:06)
[2021-01-19 03:30] LABS: Hematocrit 24.3 % (37.5-50.1); Hemoglobin 7.2 g/dL (12.9-16.9); Mean Corpuscular HGB Conc 29.6 g/dL (31.6-35.5); Mean Corpuscular Volume 84.4 fL (83.0-100.0); Mean Platelet Volume 10.2 fL (9.4-12.4); Platelet Count 194 K/mcL (140-400); Red Blood Count 2.88 M/mcL (4.19-5.50); Red Cell Distribution Width 15.2 % (11.5-14.5); White Blood Count 6.1 K/mcL (4.3-11.1)
[2021-01-19 03:44] LABS: Calcium 8.7 mg/dL (8.6-10.3); Potassium 3.3 mEq/L (3.5-5.1)
[2021-01-19] MEDS: Insulin LISPRO 300 UNITS/3 ML VIAL SUBQ SCH ×3 (07:53→18:04)
[2021-01-19] MEDS ORDERED: Pantoprazole 40 MG VIAL IVP SCH (09:00)
[2021-01-19] MEDS ORDERED: Iron Sucrose Complex 400 MG in 0.9 % Sodium Chloride 250 ML IVPB ONE (12:25)
[2021-01-19] MEDS ORDERED: Lidocaine -MPF 2% 2 ML VIAL ONE (12:30)
[2021-01-19] MEDS ORDERED: *HR* Propofol 200 MG/20 ML VIAL IVP ONE (13:54)
[2021-01-19] MEDS ORDERED: *HR* EPINEPHrine 1 MG/10 ML SYRINGE INTRATRACH PRN (14:00)
[2021-01-19] MEDS ORDERED: PARoxetine 20 MG TABLET PO SCH (14:30)
[2021-01-19] MEDS ORDERED: Metoprolol XL (24 HR) Succ 25 MG TAB.ER.24H PO SCH (14:30)
[2021-01-19 15:30] VITALS: BP 149/89; PULSE 99; TEMP 97.6; O2SAT 100
[2021-01-22 21:55] LABS: % Iron Saturation 9 % (20-55); Transferrin 347 mg/dL (203-362)
== END 2021-01-19 18:20 | disposition home or self-care (01) ==
LOC: 3ANU 13:05 → EMEROOARM 13:05 → SUATTDRO 17:19 → 3ANU 18:12
PROVIDERS: ADMIT Family Medicine; ATTEND Internal Medicine
PROC: ENDOEBX (2021-01-19 11:00)